=== PATIENT | male | born 1950 | race Caucasian/White ===

== ENCOUNTER 2025-06-11 12:18 | Emergency (ER) | payer OTHER ==
[~2025-06-11] VITALS: Ht 182.8 cm; Wt 95.3 kg
[2025-06-11 13:29] LABS: BASO # 0.0 10*3/uL (0.0-0.1); BASO % 0.5 % (0.0-1.0); EOS # 0.1 10*3/uL (0.0-0.4); EOS % 1.6 % (1.0-4.0); MEAN CELL VOLUME 88.4 fl (80.0-94.0); MEAN CORPUSCULAR HGB 27.8 pg (27.0-31.0); MEAN PLATELET VOLUME 9.8 fl (9.6-12.3); MONO # 0.4 10*3/uL (0.1-1.0); MONO % 6.8 % (3.0-9.0); NEUT # 4.2 10*3/uL (2.3-7.9); NEUT % 73.8 % (47.0-73.0); NUCLEATED RED BLOOD CELL 0.0 % (0.0-0.0); NUCLEATED RED BLOOD CELL 0.0 10*3/uL (0.0-0.0); PLATELET COUNT AUTOMATED 218 10*3/uL (130-400); RED CELL DISTRI WIDTH 14.4 % (0-14.5)
[2025-06-11 13:50] LABS: BUN 16 mg/dl (9-23)
[2025-06-11] MEDS ORDERED: Bacitracin Zinc 14 GM TUBE T ONE (15:25)
== END 2025-06-11 16:19 | disposition home or self-care (01) ==
LOC: ED 12:18
DX: S81.802A Unspecified open wound, left lower leg, initial encounter (principal); S81.801A Unspecified open wound, right lower leg, initial encounter; I99.8 Other disorder of circulatory system; X58.XXXA Exposure to other specified factors, initial encounter; Y93.89 Activity, other specified; Y92.89 Other specified places as the place of occurrence of the external cause; Y99.8 Other external cause status